=== PATIENT | female | born 1960 | race Caucasian/White ===

== ENCOUNTER 2020-04-17 14:13 | Inpatient (IN) ==
[2020-04-17] MEDS: Furosemide 40 MG TABLET PO SCH (22:38)
[2020-04-18 04:45] LABS: Basophils # 0.1 K/mcL (0.0-0.2); Basophils % 0.8 %; Eosinophils # 0.2 K/mcL (0.0-0.6); Eosinophils % 2.5 %; Hemoglobin 9.8 g/dL (11.5-15.4); Immature Granulocytes % 0.9 % (0-4); Lymphocytes % 25.8 %; Mean Corpuscular HGB Conc 32.7 g/dL (31.6-35.5); Mean Corpuscular Hemoglobin 29.3 pg (28.0-33.3); Mean Corpuscular Volume 89.6 fL (83.0-100.0); Mean Platelet Volume 10.6 fL (9.4-12.4); Monocytes # 0.7 K/mcL (0.0-1.3); Monocytes % 8.8 %; Neutrophils # 4.8 K/mcL (1.6-8.9); Platelet Count 166 K/mcL (140-400); Red Blood Count 3.35 M/mcL (3.82-4.97); Red Cell Distribution Width 15.1 % (11.5-14.5); Segmented Neutrophils % 61.2 %; White Blood Count 7.9 K/mcL (4.3-11.1)
[2020-04-18 04:59] LABS: Calcium 9.5 mg/dL (8.6-10.3); Potassium 3.4 mEq/L (3.5-5.1)
[2020-04-18] MEDS: *HR* Enoxaparin 30 MG/0.3 ML SYRINGE SQ SCH (05:33)
[2020-04-18] MEDS: Thiamine (B-1) 100 MG TABLET PO SCH (10:35)
[2020-04-18] MEDS: Cholecalciferol (D-3) 1,000 UNIT (25MCG) TABLET PO SCH (10:35)
[2020-04-18] MEDS: *HR* GlipiZIDE XL (24 HR) 10 MG TABLET PO SCH (10:36)
[2020-04-18] MEDS: Vitamin B Complex/Vit C/Vit E 1 EACH TABLET PO SCH (10:36)
[2020-04-18] MEDS: Cyanocobalamin (B-12) 1,000 MCG TABLET PO SCH (10:36)
[2020-04-18] MEDS: Renal Vitamin 1 CAP CAPSULE PO SCH (10:36)
[2020-04-18] MEDS: Ascorbic Acid 500 MG TABLET PO SCH (10:36)
[2020-04-18] MEDS: Furosemide 40 MG TABLET PO SCH ×2 (10:36→21:04)
[2020-04-18] MEDS ORDERED: Dextrose Gel 15 GM/37.5 ML TUBE PO PRN ×2 (11:46)
[2020-04-18] MEDS ORDERED: D5% in Water 1,000 ML IVC PRN (11:46)
[2020-04-18] MEDS ORDERED: *HR* Dextrose 50 % in Water (Vial) 50 ML VIAL IVP PRN (11:46)
[2020-04-18] MEDS: Insulin LISPRO 300 UNITS/3 ML VIAL SUBQ SCH ×2 (12:29→16:02)
[2020-04-19] MEDS: Insulin LISPRO 300 UNITS/3 ML VIAL SUBQ SCH ×5 (03:36→20:27)
[2020-04-19] MEDS: *HR* Enoxaparin 30 MG/0.3 ML SYRINGE SQ SCH (07:06)
[2020-04-19] MEDS: Cholecalciferol (D-3) 1,000 UNIT (25MCG) TABLET PO SCH (09:00)
[2020-04-19] MEDS: Furosemide 40 MG TABLET PO SCH ×2 (09:00→20:31)
[2020-04-19] MEDS: Ascorbic Acid 500 MG TABLET PO SCH (09:00)
[2020-04-19] MEDS: Thiamine (B-1) 100 MG TABLET PO SCH (09:00)
[2020-04-19] MEDS: Cyanocobalamin (B-12) 1,000 MCG TABLET PO SCH (09:00)
[2020-04-19] MEDS: Renal Vitamin 1 CAP CAPSULE PO SCH (09:00)
[2020-04-19] MEDS: Vitamin B Complex/Vit C/Vit E 1 EACH TABLET PO SCH (09:00)
[2020-04-19] MEDS: *HR* GlipiZIDE XL (24 HR) 10 MG TABLET PO SCH (09:01)
[2020-04-20 05:40] LABS: Hematocrit 30.2 % (35.3-44.9); Hemoglobin 9.7 g/dL (11.5-15.4); Mean Corpuscular HGB Conc 32.1 g/dL (31.6-35.5); Mean Corpuscular Volume 90.1 fL (83.0-100.0); Mean Platelet Volume 11.1 fL (9.4-12.4); Platelet Count 185 K/mcL (140-400); Red Blood Count 3.35 M/mcL (3.82-4.97); Red Cell Distribution Width 15.2 % (11.5-14.5); White Blood Count 6.5 K/mcL (4.3-11.1)
[2020-04-20 06:01] LABS: Albumin 3.7 g/dL (3.5-5.7); Albumin/Globulin Ratio 1.4 (1.1-2.2); Bilirubin,Total 0.5 mg/dL (0.3-1.0); Calcium 9.3 mg/dL (8.6-10.3); Globulin 2.6 g/dL (2.4-3.5); Magnesium 1.7 mg/dL (1.6-2.6); Potassium 3.5 mEq/L (3.5-5.1); Total Protein 6.3 g/dL (6.4-8.9)
[2020-04-20] MEDS: *HR* Enoxaparin 30 MG/0.3 ML SYRINGE SQ SCH (06:57)
[2020-04-20] MEDS ORDERED: *HR* GlipiZIDE XL (24 HR) 2.5 MG TABLET PO SCH (09:00)
[2020-04-20] MEDS: Insulin LISPRO 300 UNITS/3 ML VIAL SUBQ SCH ×4 (11:34→21:41)
[2020-04-20] MEDS: Thiamine (B-1) 100 MG TABLET PO SCH (11:34)
[2020-04-20] MEDS: Cyanocobalamin (B-12) 1,000 MCG TABLET PO SCH (11:35)
[2020-04-20] MEDS: Cholecalciferol (D-3) 1,000 UNIT (25MCG) TABLET PO SCH (11:35)
[2020-04-20] MEDS: Renal Vitamin 1 CAP CAPSULE PO SCH (11:35)
[2020-04-20] MEDS: Acetaminophen 325 MG TABLET PO PRN (11:35)
[2020-04-20] MEDS: Vitamin B Complex/Vit C/Vit E 1 EACH TABLET PO SCH (11:35)
[2020-04-20] MEDS: Furosemide 40 MG TABLET PO SCH ×2 (11:35→22:08)
[2020-04-20] MEDS: Ascorbic Acid 500 MG TABLET PO SCH (11:35)
[2020-04-21] MEDS: *HR* Enoxaparin 30 MG/0.3 ML SYRINGE SQ SCH (06:40)
[2020-04-21] MEDS: Insulin LISPRO 300 UNITS/3 ML VIAL SUBQ SCH ×4 (08:31→20:40)
[2020-04-21] MEDS: Cholecalciferol (D-3) 1,000 UNIT (25MCG) TABLET PO SCH (08:33)
[2020-04-21] MEDS: Furosemide 40 MG TABLET PO SCH ×2 (08:33→20:55)
[2020-04-21] MEDS: Ascorbic Acid 500 MG TABLET PO SCH (08:34)
[2020-04-21] MEDS: Renal Vitamin 1 CAP CAPSULE PO SCH (08:34)
[2020-04-21] MEDS: Thiamine (B-1) 100 MG TABLET PO SCH (08:34)
[2020-04-21] MEDS: Vitamin B Complex/Vit C/Vit E 1 EACH TABLET PO SCH (08:34)
[2020-04-21] MEDS: *HR* GlipiZIDE XL (24 HR) 2.5 MG TABLET PO SCH (08:34)
[2020-04-21] MEDS: Cyanocobalamin (B-12) 1,000 MCG TABLET PO SCH (08:34)
[2020-04-21] MEDS: traZODone 50 MG TABLET PO PRN (22:47)
[2020-04-22] MEDS: *HR* Enoxaparin 30 MG/0.3 ML SYRINGE SQ SCH (05:17)
[2020-04-22 06:22] LABS: Hematocrit 29.5 % (35.3-44.9); Hemoglobin 9.4 g/dL (11.5-15.4); Mean Corpuscular HGB Conc 31.9 g/dL (31.6-35.5); Mean Corpuscular Hemoglobin 28.9 pg (28.0-33.3); Mean Corpuscular Volume 90.8 fL (83.0-100.0); Mean Platelet Volume 11.3 fL (9.4-12.4); Platelet Count 234 K/mcL (140-400); Red Blood Count 3.25 M/mcL (3.82-4.97); Red Cell Distribution Width 15.2 % (11.5-14.5); White Blood Count 5.5 K/mcL (4.3-11.1)
[2020-04-22 06:40] LABS: Albumin/Globulin Ratio 1.5 (1.1-2.2); Bilirubin,Total 0.5 mg/dL (0.3-1.0); Calcium 9.6 mg/dL (8.6-10.3); Globulin 2.6 g/dL (2.4-3.5); Potassium 3.3 mEq/L (3.5-5.1); Total Protein 6.6 g/dL (6.4-8.9)
[2020-04-22] MEDS: Insulin LISPRO 300 UNITS/3 ML VIAL SUBQ SCH ×4 (08:01→20:49)
[2020-04-22] MEDS: Cholecalciferol (D-3) 1,000 UNIT (25MCG) TABLET PO SCH (08:08)
[2020-04-22] MEDS: Furosemide 40 MG TABLET PO SCH ×2 (08:08→20:48)
[2020-04-22] MEDS: Ascorbic Acid 500 MG TABLET PO SCH (08:08)
[2020-04-22] MEDS: Cyanocobalamin (B-12) 1,000 MCG TABLET PO SCH (08:08)
[2020-04-22] MEDS: Renal Vitamin 1 CAP CAPSULE PO SCH (08:08)
[2020-04-22] MEDS: Vitamin B Complex/Vit C/Vit E 1 EACH TABLET PO SCH (08:08)
[2020-04-22] MEDS: *HR* GlipiZIDE XL (24 HR) 2.5 MG TABLET PO SCH (08:08)
[2020-04-22] MEDS: Thiamine (B-1) 100 MG TABLET PO SCH (08:08)
[2020-04-23] MEDS: Insulin LISPRO 300 UNITS/3 ML VIAL SUBQ SCH ×4 (06:27→21:40)
[2020-04-23] MEDS: Ascorbic Acid 500 MG TABLET PO SCH (09:18)
[2020-04-23] MEDS: Renal Vitamin 1 CAP CAPSULE PO SCH (09:18)
[2020-04-23] MEDS: Cholecalciferol (D-3) 1,000 UNIT (25MCG) TABLET PO SCH (09:18)
[2020-04-23] MEDS: Cyanocobalamin (B-12) 1,000 MCG TABLET PO SCH (09:18)
[2020-04-23] MEDS: *HR* Enoxaparin 30 MG/0.3 ML SYRINGE SQ SCH (09:18)
[2020-04-23] MEDS: Vitamin B Complex/Vit C/Vit E 1 EACH TABLET PO SCH (09:18)
[2020-04-23] MEDS: *HR* GlipiZIDE XL (24 HR) 2.5 MG TABLET PO SCH (09:20)
[2020-04-23] MEDS: Thiamine (B-1) 100 MG TABLET PO SCH (09:21)
[2020-04-23] MEDS: Furosemide 40 MG TABLET PO SCH ×2 (09:21→21:40)
[2020-04-23] MEDS: traZODone 50 MG TABLET PO PRN (21:40)
[2020-04-23] MEDS: Acetaminophen 325 MG TABLET PO PRN (21:40)
[2020-04-24] MEDS ORDERED: Furosemide 40 MG TABLET PO SCH (06:00)
[2020-04-24] MEDS: *HR* Enoxaparin 30 MG/0.3 ML SYRINGE SQ SCH (06:54)
[2020-04-24] MEDS: Furosemide 40 MG TABLET PO SCH ×2 (06:54→17:24)
[2020-04-24] MEDS: Insulin LISPRO 300 UNITS/3 ML VIAL SUBQ SCH ×4 (08:43→20:38)
[2020-04-24] MEDS: *HR* GlipiZIDE XL (24 HR) 2.5 MG TABLET PO SCH (08:45)
[2020-04-24] MEDS: Ascorbic Acid 500 MG TABLET PO SCH (08:45)
[2020-04-24] MEDS: Renal Vitamin 1 CAP CAPSULE PO SCH (08:46)
[2020-04-24] MEDS: Cyanocobalamin (B-12) 1,000 MCG TABLET PO SCH (08:46)
[2020-04-24] MEDS: Vitamin B Complex/Vit C/Vit E 1 EACH TABLET PO SCH (08:46)
[2020-04-24] MEDS: Cholecalciferol (D-3) 1,000 UNIT (25MCG) TABLET PO SCH (08:46)
[2020-04-24] MEDS: Thiamine (B-1) 100 MG TABLET PO SCH (08:46)
[2020-04-24] MEDS: Acetaminophen 325 MG TABLET PO PRN (14:32)
[2020-04-25 05:04] LABS: Basophils % 0.6 %; Eosinophils # 0.3 K/mcL (0.0-0.6); Eosinophils % 4.7 %; Hematocrit 26.2 % (35.3-44.9); Hemoglobin 8.6 g/dL (11.5-15.4); Immature Granulocytes % 0.9 % (0-4); Lymphocytes # 2.3 K/mcL (0.6-4.6); Lymphocytes % 34.4 %; Mean Corpuscular HGB Conc 32.8 g/dL (31.6-35.5); Mean Corpuscular Hemoglobin 29.8 pg (28.0-33.3); Mean Corpuscular Volume 90.7 fL (83.0-100.0); Monocytes # 0.7 K/mcL (0.0-1.3); Monocytes % 10.1 %; Neutrophils # 3.2 K/mcL (1.6-8.9); Platelet Count 244 K/mcL (140-400); Red Blood Count 2.89 M/mcL (3.82-4.97); Red Cell Distribution Width 15.4 % (11.5-14.5); Segmented Neutrophils % 49.3 %; White Blood Count 6.5 K/mcL (4.3-11.1)
[2020-04-25 05:18] LABS: Calcium 9.6 mg/dL (8.6-10.3); Potassium 3.5 mEq/L (3.5-5.1)
[2020-04-25] MEDS: Furosemide 40 MG TABLET PO SCH ×2 (05:27→17:10)
[2020-04-25] MEDS: *HR* Enoxaparin 30 MG/0.3 ML SYRINGE SQ SCH (05:27)
[2020-04-25] MEDS: Thiamine (B-1) 100 MG TABLET PO SCH (08:37)
[2020-04-25] MEDS: Vitamin B Complex/Vit C/Vit E 1 EACH TABLET PO SCH (08:37)
[2020-04-25] MEDS: Renal Vitamin 1 CAP CAPSULE PO SCH (08:37)
[2020-04-25] MEDS: Ascorbic Acid 500 MG TABLET PO SCH (08:37)
[2020-04-25] MEDS: *HR* GlipiZIDE XL (24 HR) 2.5 MG TABLET PO SCH (08:37)
[2020-04-25] MEDS: Insulin LISPRO 300 UNITS/3 ML VIAL SUBQ SCH ×4 (08:37→20:12)
[2020-04-25] MEDS: Cyanocobalamin (B-12) 1,000 MCG TABLET PO SCH (08:37)
[2020-04-25] MEDS: Cholecalciferol (D-3) 1,000 UNIT (25MCG) TABLET PO SCH (08:37)
[2020-04-26] MEDS: Furosemide 40 MG TABLET PO SCH ×2 (06:08→17:16)
[2020-04-26] MEDS: *HR* Enoxaparin 30 MG/0.3 ML SYRINGE SQ SCH (06:08)
[2020-04-26] MEDS: Insulin LISPRO 300 UNITS/3 ML VIAL SUBQ SCH ×4 (08:36→20:30)
[2020-04-26] MEDS: Cyanocobalamin (B-12) 1,000 MCG TABLET PO SCH (09:56)
[2020-04-26] MEDS: *HR* GlipiZIDE XL (24 HR) 2.5 MG TABLET PO SCH (09:56)
[2020-04-26] MEDS: Cholecalciferol (D-3) 1,000 UNIT (25MCG) TABLET PO SCH (09:56)
[2020-04-26] MEDS: Renal Vitamin 1 CAP CAPSULE PO SCH (09:56)
[2020-04-26] MEDS: Thiamine (B-1) 100 MG TABLET PO SCH (09:56)
[2020-04-26] MEDS: Vitamin B Complex/Vit C/Vit E 1 EACH TABLET PO SCH (09:56)
[2020-04-26] MEDS: Ascorbic Acid 500 MG TABLET PO SCH (09:56)
[2020-04-27 04:43] LABS: Basophils % 0.4 %; Eosinophils # 0.3 K/mcL (0.0-0.6); Eosinophils % 3.7 %; Hematocrit 25.1 % (35.3-44.9); Hemoglobin 8.1 g/dL (11.5-15.4); Immature Granulocytes % 1.2 % (0-4); Lymphocytes # 2.3 K/mcL (0.6-4.6); Lymphocytes % 34.1 %; Mean Corpuscular HGB Conc 32.3 g/dL (31.6-35.5); Mean Corpuscular Hemoglobin 29.3 pg (28.0-33.3); Mean Corpuscular Volume 90.9 fL (83.0-100.0); Mean Platelet Volume 10.4 fL (9.4-12.4); Monocytes # 0.6 K/mcL (0.0-1.3); Monocytes % 8.8 %; Neutrophils # 3.5 K/mcL (1.6-8.9); Platelet Count 221 K/mcL (140-400); Red Blood Count 2.76 M/mcL (3.82-4.97); Red Cell Distribution Width 15.5 % (11.5-14.5); Segmented Neutrophils % 51.8 %; White Blood Count 6.7 K/mcL (4.3-11.1)
[2020-04-27 05:00] LABS: Calcium 9.3 mg/dL (8.6-10.3); Potassium 3.5 mEq/L (3.5-5.1)
[2020-04-27] MEDS: Furosemide 40 MG TABLET PO SCH ×2 (06:04→17:27)
[2020-04-27] MEDS: *HR* Enoxaparin 30 MG/0.3 ML SYRINGE SQ SCH (06:04)
[2020-04-27] MEDS: Insulin LISPRO 300 UNITS/3 ML VIAL SUBQ SCH ×4 (09:51→19:46)
[2020-04-27] MEDS: Thiamine (B-1) 100 MG TABLET PO SCH (09:55)
[2020-04-27] MEDS: *HR* GlipiZIDE XL (24 HR) 2.5 MG TABLET PO SCH (09:55)
[2020-04-27] MEDS: Cyanocobalamin (B-12) 1,000 MCG TABLET PO SCH (09:55)
[2020-04-27] MEDS: Vitamin B Complex/Vit C/Vit E 1 EACH TABLET PO SCH (09:55)
[2020-04-27] MEDS: Cholecalciferol (D-3) 1,000 UNIT (25MCG) TABLET PO SCH (09:55)
[2020-04-27] MEDS: Renal Vitamin 1 CAP CAPSULE PO SCH (09:55)
[2020-04-27] MEDS: Ascorbic Acid 500 MG TABLET PO SCH (09:56)
[2020-04-28] MEDS: *HR* Enoxaparin 30 MG/0.3 ML SYRINGE SQ SCH (06:10)
[2020-04-28] MEDS: Furosemide 40 MG TABLET PO SCH ×2 (06:10→17:36)
[2020-04-28] MEDS: Vitamin B Complex/Vit C/Vit E 1 EACH TABLET PO SCH (09:04)
[2020-04-28] MEDS: Renal Vitamin 1 CAP CAPSULE PO SCH (09:04)
[2020-04-28] MEDS: Thiamine (B-1) 100 MG TABLET PO SCH (09:04)
[2020-04-28] MEDS: Cholecalciferol (D-3) 1,000 UNIT (25MCG) TABLET PO SCH (09:04)
[2020-04-28] MEDS: Cyanocobalamin (B-12) 1,000 MCG TABLET PO SCH (09:04)
[2020-04-28] MEDS: *HR* GlipiZIDE XL (24 HR) 2.5 MG TABLET PO SCH (09:04)
[2020-04-28] MEDS: Ascorbic Acid 500 MG TABLET PO SCH (09:04)
[2020-04-28] MEDS: Insulin LISPRO 300 UNITS/3 ML VIAL SUBQ SCH ×4 (09:08→21:22)
[2020-04-28] MEDS: traZODone 50 MG TABLET PO PRN (21:21)
[2020-04-28] MEDS: Acetaminophen 325 MG TABLET PO PRN (21:22)
[2020-04-29] MEDS: Furosemide 40 MG TABLET PO SCH ×2 (06:30→17:48)
[2020-04-29] MEDS: *HR* Enoxaparin 30 MG/0.3 ML SYRINGE SQ SCH (06:31)
[2020-04-29] MEDS: Insulin LISPRO 300 UNITS/3 ML VIAL SUBQ SCH ×4 (08:57→21:27)
[2020-04-29] MEDS: *HR* GlipiZIDE XL (24 HR) 2.5 MG TABLET PO SCH (09:03)
[2020-04-29] MEDS: Ascorbic Acid 500 MG TABLET PO SCH (09:04)
[2020-04-29] MEDS: Thiamine (B-1) 100 MG TABLET PO SCH (09:04)
[2020-04-29] MEDS: Vitamin B Complex/Vit C/Vit E 1 EACH TABLET PO SCH (09:04)
[2020-04-29] MEDS: Cholecalciferol (D-3) 1,000 UNIT (25MCG) TABLET PO SCH (09:05)
[2020-04-29] MEDS: Renal Vitamin 1 CAP CAPSULE PO SCH (09:05)
[2020-04-29] MEDS: Cyanocobalamin (B-12) 1,000 MCG TABLET PO SCH (09:05)
[2020-04-29] MEDS: Acetaminophen 325 MG TABLET PO PRN (21:28)
[2020-04-30] MEDS: Furosemide 40 MG TABLET PO SCH ×2 (07:07→17:35)
[2020-04-30] MEDS: *HR* Enoxaparin 30 MG/0.3 ML SYRINGE SQ SCH (07:07)
[2020-04-30] MEDS: Cholecalciferol (D-3) 1,000 UNIT (25MCG) TABLET PO SCH (08:13)
[2020-04-30] MEDS: Vitamin B Complex/Vit C/Vit E 1 EACH TABLET PO SCH (08:13)
[2020-04-30] MEDS: *HR* GlipiZIDE XL (24 HR) 2.5 MG TABLET PO SCH (08:13)
[2020-04-30] MEDS: Renal Vitamin 1 CAP CAPSULE PO SCH (08:13)
[2020-04-30] MEDS: Cyanocobalamin (B-12) 1,000 MCG TABLET PO SCH (08:13)
[2020-04-30] MEDS: Ascorbic Acid 500 MG TABLET PO SCH (08:13)
[2020-04-30] MEDS: Insulin LISPRO 300 UNITS/3 ML VIAL SUBQ SCH ×4 (08:13→22:02)
[2020-04-30] MEDS: Thiamine (B-1) 100 MG TABLET PO SCH (08:13)
[2020-04-30] MEDS: traZODone 50 MG TABLET PO PRN (21:56)
[2020-04-30] MEDS: Acetaminophen 325 MG TABLET PO PRN (21:56)
[2020-05-01] MEDS: Furosemide 40 MG TABLET PO SCH ×2 (06:31→17:22)
[2020-05-01] MEDS: *HR* Enoxaparin 30 MG/0.3 ML SYRINGE SQ SCH (06:31)
[2020-05-01] MEDS: Insulin LISPRO 300 UNITS/3 ML VIAL SUBQ SCH ×4 (08:57→21:01)
[2020-05-01] MEDS: Renal Vitamin 1 CAP CAPSULE PO SCH (08:58)
[2020-05-01] MEDS: *HR* GlipiZIDE XL (24 HR) 2.5 MG TABLET PO SCH (08:58)
[2020-05-01] MEDS: Cholecalciferol (D-3) 1,000 UNIT (25MCG) TABLET PO SCH (08:58)
[2020-05-01] MEDS: Thiamine (B-1) 100 MG TABLET PO SCH (08:58)
[2020-05-01] MEDS: Ascorbic Acid 500 MG TABLET PO SCH (08:59)
[2020-05-01] MEDS: Cyanocobalamin (B-12) 1,000 MCG TABLET PO SCH (08:59)
[2020-05-01] MEDS: Vitamin B Complex/Vit C/Vit E 1 EACH TABLET PO SCH (08:59)
[2020-05-01] MEDS: traZODone 50 MG TABLET PO PRN (20:59)
[2020-05-01] MEDS: Acetaminophen 325 MG TABLET PO PRN (20:59)
[2020-05-02] MEDS: Furosemide 40 MG TABLET PO SCH (06:57)
[2020-05-02] MEDS: *HR* Enoxaparin 30 MG/0.3 ML SYRINGE SQ SCH (06:58)
[2020-05-02 07:13] VITALS: BP 121/66
[2020-05-02] MEDS: Insulin LISPRO 300 UNITS/3 ML VIAL SUBQ SCH (08:53)
[2020-05-02] MEDS ORDERED: FLU Vac QV 20-21 (6Month+)/PF 0.5 ML SYRINGE IM ONE (09:15)
[2020-05-02] MEDS: Thiamine (B-1) 100 MG TABLET PO SCH (09:21)
[2020-05-02] MEDS: Renal Vitamin 1 CAP CAPSULE PO SCH (09:21)
[2020-05-02] MEDS: *HR* GlipiZIDE XL (24 HR) 2.5 MG TABLET PO SCH (09:21)
[2020-05-02] MEDS: Cyanocobalamin (B-12) 1,000 MCG TABLET PO SCH (09:21)
[2020-05-02] MEDS: Vitamin B Complex/Vit C/Vit E 1 EACH TABLET PO SCH (09:21)
[2020-05-02] MEDS: Cholecalciferol (D-3) 1,000 UNIT (25MCG) TABLET PO SCH (09:21)
[2020-05-02] MEDS: Ascorbic Acid 500 MG TABLET PO SCH (09:21)
== END 2020-05-02 12:01 | disposition home health service (06) | DRG 945 ==
LOC: INPGRE 22:13
PROVIDERS: ADMIT Family Medicine; ATTEND Family Medicine